=== PATIENT | male | born 1935 | race Caucasian/White ===

== ENCOUNTER → 2018-11-23 | Outpatient (CLI) | payer MEDICARE, BC ==
--- NOTE | 2018-11-23 11:20 | PCVCIMAG ---
APPROVED REPORT Study performed: 11/23/2018 09:56:17 EXAM: Comprehensive 2D, Doppler, and color-flow Echocardiogram Patient Location: Echo lab Status: routine BSA: 1.88 HR: 70 bpmBP: 144/84 mmHg Rhythm: Pacemaker Other Information Study Quality: Adequate Technically limited study due to body habitus. Risk Factors: Cardiac Risk Factors: HTN Indications CAD Cardiomyopathy Bi-ventricular pacemaker 2D Dimensions IVSd: 15.93 (7-11mm)LVOT Diam: 20.69 (18-24mm) LVDd: 47.94 mm PWd: 13.81 (7-11mm) LVDs: 43.36 (25-40mm) Left Atrium: 43.21 (27-40mm) Aortic Root: 29.60 mm LV Single Plane 4CH: 51.82 % LV Single Plane 2CH: 42.91 % Volumes Left Atrial Volume (Systole) Single Plane 4CH: 109.28 mLSingle Plane 2CH: 127.03 mL LA ESV Index: 63.00 mL/m2 Aortic Valve AoV Peak Angel.: 1.77 m/s AO Peak Gr.: 12.53 mmHgLVOT Max P.92 mmHg AO Mean Gr.: 6.38 mmHgLVOT Mean P.52 mmHg AO V2 Mean: 1.16 m/sLVOT Max V: 0.85 m/s AO V2 VTI: 37.41 cmLVOT Mean V: 0.56 m/s NEREIDA (VTI): 1.57 [id number] V1 VTI: 17.47 cm NEREIDA Vmax: 1.62 cm2 AI Vmax: 4.76 m/sSV (LVOT): 58.70 mL AI Placer: 3.01 m/s2 AI PHT: 457.90 ms Mitral Valve E/A Ratio: 2.4 MV Decel. Time: 211.52 ms MV E Max Angel.: 0.63 m/s MV A Angel.: 0.26 m/s IVRT: 117.65 ms Pulmonary Valve PV Peak Angel.: 0.79 m/sPV Peak Gr.: 2.47 mmHg Pulmonary Vein P Vein S: 0.66 m/sP Vein A: 0.45 m/s P Vein D: 0.87 m/sP Vein A Dur.: 169.6 msec P Vein S/D Ratio: 0.76 Tricuspid Valve TR Peak Angel.: 2.79 m/s TR Peak Gr.: 31.08 mmHg TV Vmax: 0.48 m/s Left Ventricle The left ventricle is normal size. There is hypokinesis of the anterolateral segment. Moderate concentric left ventricular hypertrophy. Left ventricular systolic function is moderately decreased. LVEF is 40%. Grade II - pseudonormal filling dynamics. Right Ventricle The right ventricle is normal size. The right ventricular systolic function is normal. Pacemaker lead is present in the right ventricle. Atria Left atrium is severely dilated. The right atrium size is mildly dilated. Pacemaker lead is present in the right atrium. Aortic Valve Moderate aortic valve sclerosis. Mild aortic regurgitation. There is no aortic valvular stenosis. Calculated aortic valve area is 1.6 cm2 with maximum pressure gradient of 13 mmHg and mean pressure gradient of 6 mmHg. Mitral Valve The mitral valve is normal in structure. Mild mitral regurgitation. No evidence of mitral valve stenosis. Tricuspid Valve The tricuspid valve is normal in structure. Mild tricuspid regurgitation with PAP of 38 mmHg. Pulmonic Valve The pulmonary valve is normal in structure. There is no pulmonic valvular regurgitation. Great Vessels The aortic root is normal in size. IVC is normal in size and collapses >50% with inspiration. Pericardium There is no pericardial effusion. There is no pleural effusion. <Conclusion> The left ventricle is normal size. The left ventricle is normal size. Moderate concentric left ventricular hypertrophy. Left ventricular systolic function is moderately decreased. Grade II - pseudonormal filling dynamics. The right ventricle is normal size. Left atrium is severely dilated. Moderate aortic valve sclerosis. Mild aortic regurgitation. Mild mitral regurgitation. Mild tricuspid regurgitation with PAP of 38 mmHg.
== END | disposition home or self-care (01) ==
LOC: PCVCIMAG 10:10
PROVIDERS: ATTEND Internal Medicine Cardiovascular Disease
DX: I08.3 Combined rheumatic disorders of mitral, aortic and tricuspid valves (principal); I25.10 Atherosclerotic heart disease of native coronary artery without angina pectoris; I11.0 Hypertensive heart disease with heart failure; I50.9 Heart failure, unspecified; I48.0 Paroxysmal atrial fibrillation; Z88.5 Allergy status to narcotic agent; Z88.8 Allergy status to other drugs, medicaments and biological substances; Z79.82 Long term (current) use of aspirin
CPT/HCPCS: 93005; 93306; G0463